=== PATIENT | male | born 1970 | race Caucasian/White ===

== ENCOUNTER → 2020-11-17 | Outpatient (CLI) | payer OTHER ==
[~2020-11-17] MED LIST: DOLO10TA PO; KLON1TAB PO; LITH1TAB4 PO; PAXI10TA12 PO; TRAM50TA2 PO
[2020-11-17 15:57] LABS: PLATELET COUNT, AUTOMATED 265 10^3/uL (150-450)
[2020-11-17 16:00] LABS: BLOOD UREA NITROGEN 16 MG/DL (7-18); CREATININE FOR GFR 0.99 MG/DL (0.70-1.30); GLOMERULAR FILTRATION RATE > 60.0 (>60)
[2020-11-17 16:03] LABS: COLLAGEN EPINEPHRINE 94 SECONDS (74-162)
[2020-11-17 16:10] LABS: INR 0.97; PROTHROMBIN TIME 13.1 SECONDS (12.5-14.3)
[2020-11-17 16:11] LABS: PARTIAL THROMBOPLASTIN TIME 34.8 SECONDS (24.2-38.5)
== END ==
LOC: M PLALAB 13:53
PROVIDERS: ATTEND Physician Assistant
DX: M47.27 Other spondylosis with radiculopathy, lumbosacral region (principal)

== ENCOUNTER → 2020-11-24 | Outpatient (CLI) | payer OTHER ==
[2020-11-24 12:00] LABS: BASO # 0.1 10^3/uL (0.0-0.2); BASO % 1.2 % (0.0-1.0); EOS # 0.2 10^3/uL (0.0-0.5); EOS % 2.6 % (0.0-3.0); LYMPH % 23.9 % (24.0-44.0); MONO # 0.6 10^3/uL (0.0-0.8); MONO % 6.8 % (2.0-8.0); NEUTROPHILS # 5.6 10^3/uL (1.5-8.5); NEUTROPHILS % 65.3 % (36.0-66.0); WHITE BLOOD COUNT 8.6 10^3/uL (4.0-10.0)
[2020-11-24 12:44] LABS: ERYTHROCYTE SEDIMENTATION RATE 10 mm/hr (0-15)
== END ==
LOC: M LAB 10:58
PROVIDERS: ATTEND Physical Medicine & Rehabilitation
DX: M47.27 Other spondylosis with radiculopathy, lumbosacral region (principal)

== ENCOUNTER → 2020-12-12 | Outpatient (REF) | payer OTHER ==
[2020-12-12 11:53] LABS: BASO # 0.1 10^3/uL (0.0-0.2); BASO % 0.9 % (0.0-1.0); EOS # 0.2 10^3/uL (0.0-0.5); EOS % 2.4 % (0.0-3.0); HEMATOCRIT 47.9 % (42.0-52.0); HEMOGLOBIN 15.7 g/dl (13.5-17.5); LYMPH # 2.1 10^3/uL (1.5-5.0); LYMPH % 23.3 % (24.0-44.0); MEAN CORPUSCULAR HEMOGLOBIN 29.3 pg (27.0-33.0); MEAN CORPUSCULAR HGB CONC 32.8 g/dl (32.0-36.5); MEAN CORPUSCULAR VOLUME 89.4 fl (80.0-96.0); MONO # 0.6 10^3/uL (0.0-0.8); MONO % 6.8 % (2.0-8.0); NEUTROPHILS # 5.8 10^3/uL (1.5-8.5); NEUTROPHILS % 66.3 % (36.0-66.0); PLATELET COUNT, AUTOMATED 259 10^3/uL (150-450); RED BLOOD COUNT 5.36 10^6/uL (4.30-6.10); WHITE BLOOD COUNT 8.8 10^3/uL (4.0-10.0)
[2020-12-12 12:13] LABS: ERYTHROCYTE SEDIMENTATION RATE 6 mm/hr (0-15)
[2020-12-12 12:30] LABS: ALBUMIN 4.2 GM/DL (3.2-5.2); ALT/SGPT 42 U/L (12-78); BILIRUBIN,TOTAL 0.3 MG/DL (0.2-1.0); BLOOD UREA NITROGEN 18 MG/DL (7-18); CALCIUM LEVEL 9.4 MG/DL (8.5-10.1); CARBON DIOXIDE LEVEL 31 MEQ/L (21-32); CHLORIDE LEVEL 104 MEQ/L (98-107); CREATININE FOR GFR 0.92 MG/DL (0.70-1.30); FREE T4 1.02 NG/DL (0.76-1.46); GLOMERULAR FILTRATION RATE > 60.0 (>60); GLUCOSE, FASTING 103 MG/DL (70-100); POTASSIUM SERUM 4.4 MEQ/L (3.5-5.1); SODIUM LEVEL 137 MEQ/L (136-145); TOTAL PROTEIN 7.9 GM/DL (6.4-8.2)
[2020-12-12 13:12] LABS: HIV 1&2 SCREEN CENTAUR NEGATIVE (NEGATIVE)
== END ==
LOC: M SFHCPLAZ 10:15
PROVIDERS: ATTEND Internal Medicine Infectious Disease
DX: R63.4 Abnormal weight loss (principal); M51.36 Other intervertebral disc degeneration, lumbar region; R93.7 Abnormal findings on diagnostic imaging of other parts of musculoskeletal system

== ENCOUNTER → 2020-12-28 | Outpatient (CLI) | payer OTHER ==
--- NOTE | 2020-12-28 19:11 | REP ---
INDICATION: 2ND READ. Spondylosis with radiculopathy, swelling, evaluate for possible bone infection. Current study is reviewed at the request of Dr. Bobby. COMPARISON: Comparison lumbar spine MRI studies are reviewed from September 13, 2020, September 22, 2015, December 14, 2013, and March 08, 2011.. TECHNIQUE: Sagittal and axial T1 and T2-weighted scans are acquired in the usual fashion with and without fat saturation. Sequences include spin echo, turbo spin-echo, and STIR imaging sequences. A T2 weighted MR myelographic sequences also included. The recorded gadolinium enhancement dose is 6.5 mL of Gadavist. FINDINGS: At the L2-3 level, there is degenerative disc narrowing and reactive marrow changes are seen on either side of the L2-3 disc. These reactive marrow changes have progressed gradually in the interval since the prior MRI study. Even the most remote prior MRI from 2010 shows disc space narrowing and desiccation in the disc. Endplates are essentially intact with Schmorl's node on either side unchanged from the most recent prior study. There is diffuse disc bulging also unchanged. There is no paravertebral inflammatory change. Canal size is felt to be borderline at L2-3. The disc bulge is felt to be unchanged from the most recent prior study of September 13, 2020. Findings at L2-3 are felt to be consistent with a gradually progressive degenerative disc disease. At L3-4, there is mild diffuse disc bulging. There are Schmorl's nodes on either side of the L5 3 4 disc as well and degenerative narrowing is seen at the L3-4 disc unchanged from most recent prior study. There is a hemangioma in the L3 vertebral body unchanged from multiple prior studies. At L4-5, there is moderate diffuse disc bulging which is more prominent than the 2016 prior study but essentially unchanged from the most recent exam of 09/13/2020. There are reactive marrow changes on either side of the degenerated 4 5 disc. There is central canal stenosis at L4-5 due to diffuse disc bulging in combination with mild ligamentum flavum and mild to moderate facet hypertrophy. These findings are unchanged from 09/13/2020. At L5-S1, there is mild degenerative narrowing and diffuse disc bulging. Facet hypertrophy is again noted. Findings are unchanged. Post gadolinium enhanced images show enhancement associated with degenerative disc disease. No other significant gadolinium enhancement is seen. No extra spinal or intraspinal abnormal fluid collection is seen. IMPRESSION: Gradually progressive degenerative disc disease at multiple levels. L3 hemangioma. Central canal stenosis at L4-5 mild in degree. Findings are felt to be unchanged from the most recent prior study of 09/13/2020.. <Electronically signed by Rno Dawn > 12/28/20 7220
== END ==
LOC: M RAD 13:36
PROVIDERS: ATTEND Internal Medicine Infectious Disease
DX: M47.816 Spondylosis without myelopathy or radiculopathy, lumbar region (principal)

== ENCOUNTER → 2021-01-17 | Outpatient (CLI) | payer OTHER ==
--- NOTE | 2021-01-18 23:56 | ECWPNPC ---
PATIENT NAME: ANDREE STODDARD : 1970 GENDER: MALE VISIT DATE: 01/17/2021 DISCHARGE DATE: 01/17/21 1020 VISIT LOCKED DATE TIME: PHYSICIAN: MAYA GOODNE RESOURCE: MAYA GOODEN REASON FOR APPOINTMENT 1. LUMBAR FACET INJECTIONS/ IF NO RELIEF THEN TRIAL DCS. HISTORY OF PRESENT ILLNESS DEPRESSION SCREENING: PHQ-2 (2015 EDITION) LITTLE INTEREST OR PLEASURE IN DOING THINGS?NOT AT ALL FEELING DOWN, DEPRESSED, OR HOPELESS?NOT AT ALL TOTAL SCORE0 GENERAL: HPI 50-YEAR-OLD MALE IN FOR INITIAL PAIN CONSULT REGARDING LOW BACK PAIN WITH RADICULOPATHY. PATIENT STATES THE PAIN HAS BEEN PRESENT FOR APPROXIMATELY 11 YEARS AND STARTED STATUS POST SWINGING A SLEDGEHAMMER. HE RATES HIS PAIN CURRENTLY AT A 4 OUT OF 10 AND DESCRIBES IT ACHING, BURNING, AND INTERMITTENT. PATIENT STATES HE HAS HAD INJECTIONS IN THE PAST WITH NO RELIEF AND HE IS NOT INTERESTED IN THEM GOING FORWARD.. - - -. FALL RISK SCREENING: SCREENING NO FALLS REPORTED IN THE LAST YEAR. PAIN SCREENING: PATIENT HAS A COMPLAINT OF ACUTE OR CHRONIC PAIN :YES LOCATION OF PAIN:MID BACK, LOW BACK, LEFT HIP INTENSITY OF PAIN (SCALE OF 1 TO 10):4 WHAT DOES YOUR PAIN FEEL LIKE:ACHING, BURNING, INTERMITTENT DURATION:INTERMITTENT, AWAKENS FROM SLEEP PAIN IS INCREASED BY:ACTIVITIES, PROLONGED STANDING PAIN IS DECREASED BY:USE OF PAIN MEDICATIONS PAIN MEDS HELP LITTLE NURSING NOTE: - - -. PAIN CENTER INTAKE QUESTIONS: DO YOU HAVE A HISTORY OF MRSA? :NO DO YOU TAKE A BLOOD THINNERS? :NO DO YOU HAVE ANY BLEEDING DISORDERS? :NO ANY NEW NUMBNESS OR WEAKNESS IN YOUR LEGS OR ARMS? :NO ANY PACEMAKER,DEFIBRILLATOR, OR DORSAL COLUMN STIMULATOR? :NO DO YOU HAVE ANY RASHES OR OPEN SORES? :NO ARE YOU ALLERGIC TO IV DYE? :NO ARE YOU DIABETIC? :NO ANY NEW PROBLEMS WITH YOUR MEDICATIONS? :NO HAVE YOU RECEIVED A VACCINE IN THE PAST 30 DAYS? :NO DO YOU PLAN TO RECEIVE A VACCINE IN THE NEXT 21 DAYS? :NO DO YOU NEED ANY PRESCRIPTION? :NO DO YOU TAKE ANY IMMUNOSUPPRESSIVE MEDICATIONS? :NO DO YOU HAVE ANY KIDNEY OR LIVER DISEASE? :NO IS THERE A CHANCE YOU COULD BE ? :NO ARE YOU BREAST FEEDING? :NO CURRENT MEDICATIONS TAKING DULOXETINE HCL 60 MG CAPSULE DELAYED RELEASE PARTICLES ORAL TAKING MULTI COMPLETE - CAPSULE DIRECTED ORALLY TAKING TRAMADOL HCL 50 MG TABLET 1 TABLET NEEDED ORALLY ONCE A DAY, NOTES: LAST DOSE 01/17/2021 NOT-TAKING NORTRIPTYLINE HCL 10 MG CAPSULE ORAL NOT-TAKING FOLIC ACID XTRA - TABLET DIRECTED ORALLY NOT-TAKING DULOXETINE HCL 60 MG CAPSULE DELAYED RELEASE PARTICLES 1 CAPSULE ORALLY ONCE A DAY, NOTES: DUPLICATE MEDICATION LIST REVIEWED AND RECONCILED WITH THE PATIENT PAST MEDICAL HISTORY DDD LUMBAR 2011 WORKERS COMP EXTENSIVE TATOOS ABNORMAL LUMBAR MRI ENHANCEMENT NORMAL ESR CRP 11/2020 BOILS LEFT ARM ALLERGIES N.K.D.A. SURGICAL HISTORY JAW SURGERY 2000 RIGHT HAND 2001 FAMILY HISTORY FATHER: UNKNOWN MOTHER: UNKNOWN SON(S): ALIVE 2 SON(S) - HEALTHY. PATIENT STATES HE WAS ADOPTED AND IS UNAWARE OF ANY BIOLOGICAL FAMILY HISTORY. SOCIAL HISTORY GENERAL: TOBACCO USE ARE YOU A:HEAVY TOBACCO SMOKER SMOKING CESSATION INFORMATION GIVEN01/17/2021 LATEX QUESTIONNAIRE LATEX ALLERGY : HAVE YOU EVER DEVELOPED ANY TYPE OF REACTION AFTER HANDLING LATEX PRODUCTS SUCH RUBBER GLOVES, CONDOMS, DIAPHRAGMS, BALLOONS, SOCKS, OR UNDERWEAR?NO LATEX ALLERGY : HAVE YOU EVER DEVELOPED ANY TYPE OF REACTION DURING OR AFTER DENTAL APPOINTMENT, VAGINAL/RECTAL EXAMINATION, SURGICAL PROCEDURE, OR ANY OTHER EXPOSURE?NO DATE ASKED : 12/12/2020 LATEX RISK : HAVE YOU EVER HAD ANY DIFFICULTY BREATHING OR HIVES AFTER EATING OR HANDLING ANY FRUITS, OR VEGETABLES; SUCH KIWI, BANANAS, STONE FRUITS, OR CHESTNUTSNO LATEX RISK : DO YOU HAVE A PREVIOUS PERSONAL HISTORY OF MORE THAN NINE SURGERIES, SPINA BIFIDA, OR REPEATED CATHERIZATIONS? NO LATEX RISK : ARE YOU FREQUENTLY EXPOSED TO LATEX PRODUCTS IN YOUR OCCUPATION?NO ALCOHOL USE: NO. ALCOHOL SCREENING DID YOU HAVE A DRINK CONTAINING ALCOHOL IN THE PAST YEAR?NO POINTS0 INTERPRETATIONNEGATIVE RECREATIONAL DRUG USE DRUG USE?YES MARIJUANA CAFFEINE CAFFEINE USE?YES SEXUAL HX HAD SEX IN THE LAST 12 MONTHS (VAGINAL, ORAL, OR ANAL)?YES WITHWOMEN ONLY HIV / HEP-C SCREENING HIV TEST OFFERED TO PATIENT:YES HEP-C TEST OFFERED TO PATIENT:YES MORMONISM [id number] EVANGELICAL LANGUAGE LANGUAGES SPOKEN:UPPER SORBIAN EDUCATION LEVEL OF EDUCATION:FINISHED HIGH SCHOOL LEARNING BARRIERS / SPECIAL NEEDS CHANGE FROM LAST VISIT?NO BARRIERS TO LEARNING?NO HEARING IMPAIRED?NO VISION IMPAIRED?YES :CORRECTIVE LENSES COGNITIVELY IMPAIRED?NO READINESS TO LEARN?YES LEARNING PREFERENCES?NO LEARNING CAPABILITIES PRESENT?YES EMOTIONAL BARRIERS?NO SPECIAL DEVICES?NO GUEST ROOM INSPECTOR NEEDED?NO DOMESTIC VIOLENCE DO YOU FEEL SAFE IN YOUR ENVIRONMENT?YES OCCUPATION: RETIRED. DIET: REGULAR. EXERCISE: NONE. MARITAL STATUS: . HOSPITALIZATION/MAJOR DIAGNOSTIC PROCEDURE DENIES PAST HOSPITALIZATION REVIEW OF SYSTEMS CONSTITUTIONAL: ANY RECENT FEVER NO . CHILLS NO . WEIGHT CHANGE OF UNKNOWN REASONS NO . MUSCULOSKELETAL: ANY UNUSUAL JOINT PAIN OR SWELLING NOT MENTIONED NO . SYSTEMIC LUPUS NO . ANY NEUROMUSCULAR DISORDER NOT MENTIONED NO . LYME DISEASE NO . GASTROENTEROLOGY: ANY NEW CHANGE IN BOWEL CONTROL? NO . HISTORY OF LIVER DISORDER NOT MENTIONED NO . HISTORY OF UNUSUAL ABDOMINAL PAIN OR CRAMPING NOT MENTIONED NO . NO CONSTIPATION. GENITOURINARY: ANY NEW CHANGE IN BLADDER CONTROL? NO . ANY RENAL/KIDNEY CONDITON NOT MENTIONED NO . NEUROLOGY: HISTORY OF TBI NOT MENTIONED NO . OTHER NEW NUMBNESS OR PAIN PATTERNS NOT MENTIONED NO . NEW ONSET DIZZINESS OR NEUROLOGICAL CHANGES NOT MENTIONED NO . HISTORY OF SEVERE HEADACHES NOT MENTIONED NO . HISTORY OF STROKE OR NEUROLOGICAL DISORDER NOT MENTIONED NO . CARDIOLOGY: HEART SURGERY NO . CONGESTIVE HEART FAILURE/FLUID OVERLOAD NOT MENTIONED NO . HISTORY OF CHEST PAIN,IRREGULAR HEART BEAT NOT MENTIONED NO . RESPIRATORY: SHORTNESS OF BREATH ON EXERTION, WHEEZES, UNUSUAL COUGH NOT MENTIONED NO . ENDOCRINOLOGY: ADRENAL GLAND OR THYROID DISORDERS NOT MENTIONED NO . UNUSUAL URINATION, DIZZINESS OR LETHARGY NOT MENTIONED NO . VITAL SIGNS WT 149.0 LBS, HT 66 IN, BMI 24.05 INDEX, BP 162/94 MM HG, HR 78 /MIN, RR 18 /MIN, TEMP 97.9 F, OXYGEN SAT % 100%, SAFE IN ENV? (Y/N) YES, NA INITIALS AW 0924, REVIEWED BY: MICHAEL MEANS MA. EXAMINATION GENERAL EXAMINATION: GENERALNO ACUTE DISTRESS, WELL NOURISHED AND HYDRATED. PSYCHAPPROPRIATE MOOD AND AFFECT . LUNGS:CLEAR TO AUSCULTATION BILATERALLY, NO WHEEZES, RHONCHI, RALES. HEART:NO MURMURS, REGULAR RATE AND RHYTHM. BACK:DENIES POINT TENDERNESS ALONG LUMBAR SPINE, SURROUNDING SKIN SHOWS NO ERYTHEMA, ECCHYMOSIS, INCREASED WARMTH, AND/OR SKIN ERUPTIONS NOTED. POSITIVE MODIFIED SLR LEFT SIDE. MUSCULOSKELETAL:NOTABLE WEAKNESS OF THE LEFT LOWER EXTREMITY, RIGHT LOWER EXTREMITY WITHIN NORMAL LIMITS. ASSESSMENTS INTERVERTEBRAL DISC DISORDER WITH RADICULOPATHY OF LUMBAR REGION - M51.16 (PRIMARY) TREATMENT INTERVERTEBRAL DISC DISORDER WITH RADICULOPATHY OF LUMBAR REGION [facility] MRI SPINE,THORACIC WITHOUT [id number] NOTES: 50-YEAR-OLD MALE IN FOR INITIAL PAIN CONSULT REGARDING LOW BACK PAIN AND RADICULOPATHY. DISCUSSED INJECTIONS WITH PATIENT AND HE ADMITS THAT HE HAS HAD THEM IN THE PAST TO NO AVAIL AND DOES NOT WANT TO ENTERTAIN THE IDEA OF FURTHER INJECTIONS. DCS TRIAL DISCUSSED WITH PATIENT AND HE WISHES TO MOVE FORWARD WITH THIS. INFORMED PATIENT THIS TIPPING MACHINE OPERATOR WOULD ORDER THORACIC MRI FOR FURTHER EVALUATION AND REFERRED PATIENT FOR PSYCHOLOGICAL EVALUATION. FURTHER INFORMED PATIENT THIS TIPPING MACHINE OPERATOR WOULD GIVE HIS INFORMATION TO [facility] AND THEY WOULD CONTACT HIM REGARDING PROCEDURE. PATIENT HAS EXPRESSED UNDERSTANDING OF AND WAS IN AGREEMENT WITH TREATMENT PLAN. GIVEN TIME TO ASK QUESTIONS AND EXPRESS CONCERNS. PROCEDURE CODES FA211 ESTABILISHED PATIENT [facility] FACILITY CHARGE DISPOSITION & COMMUNICATION FOLLOW UP POST IMAGING (REASON: THORACIC MRI WITHOUT CONTRAST) ELECTRONICALLY SIGNED BY JAYDA OMER ON 01/18/2021 AT 09:46 AM EDT DISCLAIMER : THIS IS A VISIT SUMMARY EXTRACTED FROM THE [employer] CHART. IT IS NOT A COPY OF THE [employer] PROGRESS NOTE. VAHE
== END ==
LOC: M PAIN 09:30
PROVIDERS: ATTEND Family Medicine
DX: M51.16 Intervertebral disc disorders with radiculopathy, lumbar region (principal); F17.200 Nicotine dependence, unspecified, uncomplicated; Z79.899 Other long term (current) drug therapy

== ENCOUNTER → 2021-02-20 | Outpatient (CLI) | payer OTHER ==
--- NOTE | 2021-02-22 02:25 | ECWPNPC ---
PATIENT NAME: ANDREE STODDARD : 1970 GENDER: MALE VISIT DATE: 02/20/2021 DISCHARGE DATE: 02/20/21 1043 VISIT LOCKED DATE TIME: PHYSICIAN: MAYA GOODEN RESOURCE: MAYA GOODEN REASON FOR APPOINTMENT 1. MRI REVIEW HISTORY OF PRESENT ILLNESS GENERAL: HPI 42-YEAR-OLD MALE IN FOR CHRONIC PAIN FOLLOW-UP.PATIENT HAD MRI PERFORMED RECENTLY WHICH WILL BE REVIEWED WITH PATIENT TODAY. HE RATES HIS PAIN CURRENTLY AT A 4 OUT OF 10.. -. FALL RISK SCREENING: SCREENING : NO FALLS REPORTED IN THE LAST YEAR. PAIN SCREENING: PATIENT HAS A COMPLAINT OF ACUTE OR CHRONIC PAIN :YES LOCATION OF PAIN:BACK INTENSITY OF PAIN (SCALE OF 1 TO 10):4 WHAT DOES YOUR PAIN FEEL LIKE:ACHING, BURNING, STABBING, OTHER "HURTS" DURATION:CONTINOUS, CONSTANT, AWAKENS FROM SLEEP PAIN IS INCREASED BY:ACTIVITIES PAIN IS DECREASED BY:USE OF PAIN MEDICATIONS, OTHERS REPOSITIONING PLAN/GOALS/TREATMENT/INTERVENTION/FOLLOW UP:SEE PLAN NURSING NOTE: -. PAIN CENTER INTAKE QUESTIONS: DO YOU HAVE A HISTORY OF MRSA? :NO DO YOU TAKE A BLOOD THINNERS? :NO DO YOU HAVE ANY BLEEDING DISORDERS? :NO ANY NEW NUMBNESS OR WEAKNESS IN YOUR LEGS OR ARMS? :NO ANY PACEMAKER,DEFIBRILLATOR, OR DORSAL COLUMN STIMULATOR? :NO DO YOU HAVE ANY RASHES OR OPEN SORES? :NO ARE YOU ALLERGIC TO IV DYE? :NO ARE YOU DIABETIC? :NO ANY NEW PROBLEMS WITH YOUR MEDICATIONS? :NO HAVE YOU RECEIVED A VACCINE IN THE PAST 30 DAYS? :NO DO YOU PLAN TO RECEIVE A VACCINE IN THE NEXT 21 DAYS? :NO DO YOU NEED ANY PRESCRIPTION? :NO DO YOU TAKE ANY IMMUNOSUPPRESSIVE MEDICATIONS? :NO DO YOU HAVE ANY KIDNEY OR LIVER DISEASE? :NO IS THERE A CHANCE YOU COULD BE ? :NO ARE YOU BREAST FEEDING? :NO CURRENT MEDICATIONS TAKING DULOXETINE HCL 60 MG CAPSULE DELAYED RELEASE PARTICLES ORAL TAKING MULTI COMPLETE - CAPSULE DIRECTED ORALLY TAKING TRAMADOL HCL 50 MG TABLET 1 TABLET NEEDED ORALLY ONCE A DAY NOT-TAKING NORTRIPTYLINE HCL 10 MG CAPSULE ORAL NOT-TAKING FOLIC ACID XTRA - TABLET DIRECTED ORALLY NOT-TAKING DULOXETINE HCL 60 MG CAPSULE DELAYED RELEASE PARTICLES 1 CAPSULE ORALLY ONCE A DAY, NOTES: DUPLICATE MEDICATION LIST REVIEWED AND RECONCILED WITH THE PATIENT PAST MEDICAL HISTORY DDD LUMBAR 2011 WORKERS COMP EXTENSIVE TATOOS ABNORMAL LUMBAR MRI ENHANCEMENT NORMAL ESR CRP 11/2020 BOILS LEFT ARM ALLERGIES N.K.D.A. SOCIAL HISTORY GENERAL: TOBACCO USE ARE YOU A:HEAVY TOBACCO SMOKER SMOKING CESSATION INFORMATION GIVEN01/17/2021 VAPORNO E-CIGARETTENO LATEX QUESTIONNAIRE LATEX ALLERGY : HAVE YOU EVER DEVELOPED ANY TYPE OF REACTION AFTER HANDLING LATEX PRODUCTS SUCH RUBBER GLOVES, CONDOMS, DIAPHRAGMS, BALLOONS, SOCKS, OR UNDERWEAR?NO LATEX ALLERGY : HAVE YOU EVER DEVELOPED ANY TYPE OF REACTION DURING OR AFTER DENTAL APPOINTMENT, VAGINAL/RECTAL EXAMINATION, SURGICAL PROCEDURE, OR ANY OTHER EXPOSURE?NO DATE ASKED : 12/12/2020 LATEX RISK : HAVE YOU EVER HAD ANY DIFFICULTY BREATHING OR HIVES AFTER EATING OR HANDLING ANY FRUITS, OR VEGETABLES; SUCH KIWI, BANANAS, STONE FRUITS, OR CHESTNUTSNO LATEX RISK : DO YOU HAVE A PREVIOUS PERSONAL HISTORY OF MORE THAN NINE SURGERIES, SPINA BIFIDA, OR REPEATED CATHERIZATIONS? NO LATEX RISK : ARE YOU FREQUENTLY EXPOSED TO LATEX PRODUCTS IN YOUR OCCUPATION?NO ALCOHOL USE: NO. ALCOHOL SCREENING DID YOU HAVE A DRINK CONTAINING ALCOHOL IN THE PAST YEAR?NO POINTS0 INTERPRETATIONNEGATIVE RECREATIONAL DRUG USE DRUG USE?YES MARIJUANA CAFFEINE CAFFEINE USE?YES SEXUAL HX HAD SEX IN THE LAST 12 MONTHS (VAGINAL, ORAL, OR ANAL)?YES WITHWOMEN ONLY HIV / HEP-C SCREENING HIV TEST OFFERED TO PATIENT:YES HEP-C TEST OFFERED TO PATIENT:YES ZOROASTRIANISM [id number] CONFUCIANIST LANGUAGE LANGUAGES SPOKEN:MACEDONIAN EDUCATION LEVEL OF EDUCATION:FINISHED HIGH SCHOOL LEARNING BARRIERS / SPECIAL NEEDS CHANGE FROM LAST VISIT?NO BARRIERS TO LEARNING?NO HEARING IMPAIRED?NO VISION IMPAIRED?YES COGNITIVELY IMPAIRED?NO :CORRECTIVE LENSES READINESS TO LEARN?YES LEARNING PREFERENCES?NO LEARNING CAPABILITIES PRESENT?YES EMOTIONAL BARRIERS?NO SPECIAL DEVICES?NO CLEANER INDUSTRIAL NEEDED?NO DOMESTIC VIOLENCE DO YOU FEEL SAFE IN YOUR ENVIRONMENT?YES OCCUPATION: RETIRED. DIET: REGULAR. EXERCISE: NONE. MARITAL STATUS: . REVIEW OF SYSTEMS CONSTITUTIONAL: ANY RECENT FEVER NO . CHILLS NO . WEIGHT CHANGE OF UNKNOWN REASONS NO . GASTROENTEROLOGY: NEW UNEXPLAINABLE CHANGES IN BOWEL CONTROL NO . CONSTIPATION NO . GENITOURINARY: ANY NEW CHANGE IN BLADDER CONTROL? NO . NEUROLOGY: NEW ONSET DIZZINESS OR NEUROLOGICAL CHANGES NOT MENTIONED NO . NEW NUMBNESS OR PAIN PATTERNS NOT MENTIONED AND PERTINENT TO TODAY'S VISIT NO . CARDIOLOGY: NEW CHEST PRESSURE NO . PATIENT DENIES NO . RESPIRATORY: UNEXPLAINABLE COUGH NO . NEW SHORTNESS OF BREATH NO . VITAL SIGNS WT 145.8 LBS, HT 66 IN, BMI 23.53 INDEX, BP 137/100 MM HG, REPEAT BP 150/70 (MANUAL) LEFT ARM, HR 78 /MIN, RR 18 /MIN, TEMP 98.2 F, OXYGEN SAT % 97%, NA INITIALS SC 10:19RN WILL RECHECK PT'S BP. EXAMINATION GENERAL EXAMINATION: GENERALNO ACUTE DISTRESS, WELL NOURISHED AND HYDRATED. PSYCHAPPROPRIATE MOOD AND AFFECT . LUNGS:CLEAR TO AUSCULTATION BILATERALLY, NO WHEEZES, RHONCHI, RALES. HEART:NO MURMURS, REGULAR RATE AND RHYTHM. ASSESSMENTS DDD (DEGENERATIVE DISC DISEASE), LUMBAR - M51.36 (PRIMARY) TREATMENT DDD (DEGENERATIVE DISC DISEASE), LUMBAR NOTES: 42-YEAR-OLD MALE IN FOR CHRONIC PAIN FOLLOW-UP. MRI WAS REVIEWED WITH PATIENT TODAY AND THERE DID APPEAR TO BE A LOT OF ARTIFACT ON THE MRI WHICH WILL BE DISCUSSED THE [employer] TO SEE IF IT'LL WORK FOR TRIAL. PATIENT DOES ADMIT THAT HE DID NOT GET A HOLD OF [employer] SUCH THIS SOFTWARE ENGINEER DEVELOPER WE'LL CONTACT REP AND HAVE HIM GET IN CONTACT WITH PATIENT. WE'LL ALSO REFER FOR PSYCHIATRIC EVALUATION FOR DORSAL COLUMN STIMULATOR PLACEMENT. PATIENT HAS EXPRESSED UNDERSTANDING OF AND WAS IN AGREEMENT WITH TREATMENT PLAN. GIVEN TIME TO ASK QUESTIONS AND EXPRESS CONCERNS. REFERRAL TO:[facility] REASON:PSYCH EVAL FOR DCS PLACEMENT PROCEDURE CODES FA211 ESTABILISHED PATIENT [facility] FACILITY CHARGE DISPOSITION & COMMUNICATION FOLLOW UP 2 MONTHS (REASON: DCS TRIAL) ELECTRONICALLY SIGNED BY JAYDA OMER ON 02/21/2021 AT 08:33 AM EDT DISCLAIMER : THIS IS A VISIT SUMMARY EXTRACTED FROM THE [email or web address] CHART. IT IS NOT A COPY OF THE [email or web address] PROGRESS NOTE. VAHE
== END ==
LOC: M PAIN 10:15
PROVIDERS: ATTEND Family Medicine
DX: M51.36 Other intervertebral disc degeneration, lumbar region (principal); G89.29 Other chronic pain; F17.200 Nicotine dependence, unspecified, uncomplicated; Z79.899 Other long term (current) drug therapy

== ENCOUNTER → 2021-04-21 | Outpatient (CLI) | payer OTHER ==
--- NOTE | 2021-04-22 03:51 | ECWPNPC ---
PATIENT NAME: ANDREE STODDARD : 1970 GENDER: MALE VISIT DATE: 04/21/2021 DISCHARGE DATE: 04/21/21 1034 VISIT LOCKED DATE TIME: PHYSICIAN: MAYA GOODEN RESOURCE: MAYA GOODEN REASON FOR APPOINTMENT 1. DCS TRIAL HISTORY OF PRESENT ILLNESS GENERAL: HPI 50-YEAR-OLD MALE IN FOR CHRONIC PAIN FOLLOW-UP. AT LAST CLINIC VISIT PATIENT WAS TO FOLLOW-UP WITH A PSYCHOLOGIST FOR AN EVALUATION REGARDING DCS IMPLANTATION AND PATIENT STATES THAT HE WAS UNABLE TO GET THIS DONE HIS INSURANCE DID NOT WANT TO COVER IT. HE FURTHER STATES THAT HE FORGOT TO GET A HOLD OF THE [employer] REGARDING DCS TRIAL. HE RATES HIS PAIN CURRENTLY AT A 6 OUT OF 10 AND DESCRIBES IT BURNING, STABBING, AND SHOOTING.. -. FALL RISK SCREENING: SCREENING : NO FALLS REPORTED IN THE LAST YEAR. PAIN SCREENING: PATIENT HAS A COMPLAINT OF ACUTE OR CHRONIC PAIN :YES LOCATION OF PAIN:MID BACK, LOW BACK INTENSITY OF PAIN (SCALE OF 1 TO 10):6 WHAT DOES YOUR PAIN FEEL LIKE:BURNING, STABBING, SHOOTING DURATION:CONTINOUS, CONSTANT, STEADY PAIN IS INCREASED BY:ACTIVITIES BENDING PAIN IS DECREASED BY:OTHERS REST NURSING NOTE: -. PAIN CENTER INTAKE QUESTIONS: DO YOU HAVE A HISTORY OF MRSA? :NO DO YOU TAKE A BLOOD THINNERS? :NO DO YOU HAVE ANY BLEEDING DISORDERS? :NO ANY NEW NUMBNESS OR WEAKNESS IN YOUR LEGS OR ARMS? :NO ANY PACEMAKER,DEFIBRILLATOR, OR DORSAL COLUMN STIMULATOR? :NO DO YOU HAVE ANY RASHES OR OPEN SORES? :NO ARE YOU ALLERGIC TO IV DYE? :NO ARE YOU DIABETIC? :NO ANY NEW PROBLEMS WITH YOUR MEDICATIONS? :NO HAVE YOU RECEIVED A VACCINE IN THE PAST 30 DAYS? :NO DO YOU PLAN TO RECEIVE A VACCINE IN THE NEXT 21 DAYS? :NO DO YOU NEED ANY PRESCRIPTION? :NO DO YOU TAKE ANY IMMUNOSUPPRESSIVE MEDICATIONS? :NO DO YOU HAVE ANY KIDNEY OR LIVER DISEASE? :NO IS THERE A CHANCE YOU COULD BE ? :NO ARE YOU BREAST FEEDING? :NO CURRENT MEDICATIONS TAKING DULOXETINE HCL 60 MG CAPSULE DELAYED RELEASE PARTICLES ORAL TAKING MULTI COMPLETE - CAPSULE DIRECTED ORALLY TAKING TRAMADOL HCL 50 MG TABLET 1 TABLET NEEDED ORALLY ONCE A DAY NOT-TAKING NORTRIPTYLINE HCL 10 MG CAPSULE ORAL NOT-TAKING FOLIC ACID XTRA - TABLET DIRECTED ORALLY NOT-TAKING DULOXETINE HCL 60 MG CAPSULE DELAYED RELEASE PARTICLES 1 CAPSULE ORALLY ONCE A DAY, NOTES: DUPLICATE MEDICATION LIST REVIEWED AND RECONCILED WITH THE PATIENT PAST MEDICAL HISTORY DDD LUMBAR 2011 WORKERS COMP EXTENSIVE TATOOS ABNORMAL LUMBAR MRI ENHANCEMENT NORMAL ESR CRP 11/2020 BOILS LEFT ARM ALLERGIES N.K.D.A. SOCIAL HISTORY GENERAL: TOBACCO USE ARE YOU A:HEAVY TOBACCO SMOKER SMOKING CESSATION INFORMATION GIVEN04/21/2021 VAPORNO E-CIGARETTENO LATEX QUESTIONNAIRE LATEX ALLERGY : HAVE YOU EVER DEVELOPED ANY TYPE OF REACTION AFTER HANDLING LATEX PRODUCTS SUCH RUBBER GLOVES, CONDOMS, DIAPHRAGMS, BALLOONS, SOCKS, OR UNDERWEAR?NO LATEX ALLERGY : HAVE YOU EVER DEVELOPED ANY TYPE OF REACTION DURING OR AFTER DENTAL APPOINTMENT, VAGINAL/RECTAL EXAMINATION, SURGICAL PROCEDURE, OR ANY OTHER EXPOSURE?NO LATEX RISK : HAVE YOU EVER HAD ANY DIFFICULTY BREATHING OR HIVES AFTER EATING OR HANDLING ANY FRUITS, OR VEGETABLES; SUCH KIWI, BANANAS, STONE FRUITS, OR CHESTNUTSNO LATEX RISK : DO YOU HAVE A PREVIOUS PERSONAL HISTORY OF MORE THAN NINE SURGERIES, SPINA BIFIDA, OR REPEATED CATHERIZATIONS? NO LATEX RISK : ARE YOU FREQUENTLY EXPOSED TO LATEX PRODUCTS IN YOUR OCCUPATION?NO DATE ASKED : 12/12/2020 ALCOHOL USE: NO. ALCOHOL SCREENING DID YOU HAVE A DRINK CONTAINING ALCOHOL IN THE PAST YEAR?NO POINTS0 INTERPRETATIONNEGATIVE RECREATIONAL DRUG USE DRUG USE?YES MARIJUANA CAFFEINE CAFFEINE USE?YES SEXUAL HX HAD SEX IN THE LAST 12 MONTHS (VAGINAL, ORAL, OR ANAL)?YES WITHWOMEN ONLY HIV / HEP-C SCREENING HIV TEST OFFERED TO PATIENT:YES HEP-C TEST OFFERED TO PATIENT:YES MANDAEISM [id number] MANDAEISM LANGUAGE LANGUAGES SPOKEN:IRISH EDUCATION LEVEL OF EDUCATION:FINISHED HIGH SCHOOL LEARNING BARRIERS / SPECIAL NEEDS CHANGE FROM LAST VISIT?NO BARRIERS TO LEARNING?NO HEARING IMPAIRED?NO VISION IMPAIRED?YES :CORRECTIVE LENSES COGNITIVELY IMPAIRED?NO READINESS TO LEARN?YES LEARNING PREFERENCES?NO LEARNING CAPABILITIES PRESENT?YES EMOTIONAL BARRIERS?NO SPECIAL DEVICES?NO FISH WORM GROWER NEEDED?NO DOMESTIC VIOLENCE DO YOU FEEL SAFE IN YOUR ENVIRONMENT?YES OCCUPATION: RETIRED. DIET: REGULAR. EXERCISE: NONE. MARITAL STATUS: . REVIEW OF SYSTEMS CONSTITUTIONAL: ANY RECENT FEVER NO . CHILLS NO . WEIGHT CHANGE OF UNKNOWN REASONS NO . GASTROENTEROLOGY: NEW UNEXPLAINABLE CHANGES IN BOWEL CONTROL NO . CONSTIPATION NO . GENITOURINARY: ANY NEW CHANGE IN BLADDER CONTROL? NO . NEUROLOGY: NEW ONSET DIZZINESS OR NEUROLOGICAL CHANGES NOT MENTIONED NO . NEW NUMBNESS OR PAIN PATTERNS NOT MENTIONED AND PERTINENT TO TODAY'S VISIT NO . CARDIOLOGY: NEW CHEST PRESSURE NO . PATIENT DENIES NO . RESPIRATORY: UNEXPLAINABLE COUGH NO . NEW SHORTNESS OF BREATH NO . VITAL SIGNS WT 147.2 LBS, WT-KG 66.77 KG, HT 66 IN, BMI 23.76 INDEX, BP 167/93 MM HG, HR 74 /MIN, RR 18 /MIN, TEMP 98.5 F, OXYGEN SAT % 95%, SAFE IN ENV? (Y/N) YES, NA INITIALS [id number], REVIEWED BY: [facility]. ARVIND RN. EXAMINATION GENERAL EXAMINATION: GENERALNO ACUTE DISTRESS, WELL NOURISHED AND HYDRATED. PSYCHAPPROPRIATE MOOD AND AFFECT . LUNGS:CLEAR TO AUSCULTATION BILATERALLY, NO WHEEZES, RHONCHI, RALES. HEART:NO MURMURS, REGULAR RATE AND RHYTHM. ASSESSMENTS DDD (DEGENERATIVE DISC DISEASE), LUMBAR - M51.36 TREATMENT DDD (DEGENERATIVE DISC DISEASE), LUMBAR NOTES: 42-YEAR-OLD MALE IN FOR DCS TRIAL FOLLOW-UP. INFORMED PATIENT THIS POOL TABLE OPERATOR WOULD CONTACT REP FROM [employer] TO CALL PATIENT REGARDING DCS TRIAL. 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 TO COVER THE PSYCHOLOGICAL EVALUATION. GIVEN PRESENTING SYMPTOMS RECOMMEND FOLLOW-UP IN 2 MONTHS. PATIENT HAS EXPRESSED UNDERSTANDING OF AND WAS IN AGREEMENT WITH TREATMENT PLAN. GIVEN TIME TO ASK QUESTIONS AND EXPRESS CONCERNS. VISIT CODES [id number] OFFICE VISIT, EST PT., LEVEL 3. PROCEDURE CODES [id number] ESTABILISHED PATIENT [facility] F[facility] CHARGE DISPOSITION & COMMUNICATION FOLLOW UP 2 MONTHS (REASON: DCS TRIAL) ELECTRONICALLY SIGNED BY JAYDA OMER ON 04/21/2021 AT 10:42 AM EDT DISCLAIMER : THIS IS A VISIT SUMMARY EXTRACTED FROM THE [employer] CHART. IT IS NOT A COPY OF THE [employer] PROGRESS NOTE. VAHE
== END ==
LOC: M PAIN 10:15
PROVIDERS: ATTEND Family Medicine
DX: M51.36 Other intervertebral disc degeneration, lumbar region (principal); G89.29 Other chronic pain; F17.200 Nicotine dependence, unspecified, uncomplicated; Z79.899 Other long term (current) drug therapy

== ENCOUNTER → 2021-08-31 | Outpatient (CLI) | payer OTHER | LOC: M PAIN 11:00 | PROVIDERS: ATTEND Anesthesiology | DX: M96.1 Postlaminectomy syndrome, not elsewhere classified (principal); F17.200 Nicotine dependence, unspecified, uncomplicated; Z79.891 Long term (current) use of opiate analgesic; Z79.899 Other long term (current) drug therapy ==

== ENCOUNTER → 2021-10-27 | Outpatient (CLI) | payer OTHER | LOC: M PLARAD 14:02 | PROVIDERS: ATTEND Anesthesiology | DX: M96.1 Postlaminectomy syndrome, not elsewhere classified (principal); M51.26 Other intervertebral disc displacement, lumbar region; M51.27 Other intervertebral disc displacement, lumbosacral region ==

== ENCOUNTER → 2021-11-15 | Outpatient (CLI) | payer OTHER | LOC: M PAIN 10:30 | PROVIDERS: ATTEND Anesthesiology | DX: M47.816 Spondylosis without myelopathy or radiculopathy, lumbar region (principal); G89.29 Other chronic pain; Z79.899 Other long term (current) drug therapy ==